=== PATIENT | female | born 1995 | race Caucasian/White ===

== ENCOUNTER 2016-11-16 16:15 | Emergency (ER) | payer BC ==
[2016-11-16] MEDS ORDERED: Sodium Chloride 0.9% 1,000 ML IV ONE (16:49)
[2016-11-16 17:33] LABS: CHLORIDE,CL 108 mmol/L (98-110); SODIUM,NA 139 mmol/L (136-146)
--- NOTE | 2016-11-16 18:56 | EDM.PDOC ---
ED HPI GENERAL MEDICAL PROBLEM - General Chief Complaint: Abdominal Pain Stated Complaint: ABD PAIN Time Seen by Provider: 11/16/16 16:40 Source of Information: Reports: Patient History Limitations: Reports: No Limitations - History of Present Illness INITIAL COMMENTS - FREE TEXT/NARRATIVE: History of present illness: [21-year-old female presenting with complaints of abdominal pain. Patient indicates she has been seen in another facility and indicated that she has an ovarian cyst. Patient comes in desiring further workup indicating that she wouldn't be over have workup for upwards to 8 week at her external facility and she can't tolerate the pain anymore she is concerned that it is more than just as cyst.] Review of systems: As per history of present illness and below otherwise all systems reviewed and negative. Past medical history: As per history of present illness and as reviewed below otherwise noncontributory. Surgical history: As per history of present illness and as reviewed below otherwise noncontributory. Social history: No reported history of drug or alcohol abuse. Family history: As per history of present illness and as reviewed below otherwise noncontributory. Physical exam: HEENT: Atraumatic, normocephalic, pupils reactive, negative for conjunctival pallor or scleral icterus, mucous membranes moist, throat clear, neck supple, nontender, trachea midline. Lungs: Clear to auscultation, breath sounds equal bilaterally, chest nontender. Heart: S1S2, regular, negative for clicks, rubs, or JVD. Abdomen: Soft, nondistended, diffuse nonspecific lower abdominal tenderness. Negative for masses or hepatosplenomegaly. Negative for costovertebral tenderness. Pelvis: Stable nontender. Genitourinary: Deferred. Rectal: Deferred. Extremities: Atraumatic, negative for cords or calf pain. Neurovascular unremarkable. Neuro: Awake, alert, oriented. Cranial nerves II through XII unremarkable. Cerebellum unremarkable. Motor and sensory unremarkable throughout. Exam nonfocal. Diagnostics: [CBC, CMP, UA and, urine hCG, transvaginal ultrasound] Therapeutics: [] Impression: [ HEMORRHAGIC ovarian cyst] Plan: [Supportive care, pain management] Definitive disposition and diagnosis as appropriate pending reevaluation and review of above. Lower Abdominal Pain Score (Numeric/FACES): 6 - Related Data Allergies Allergy/AdvReac Type Severity Reaction Status Date / Time Penicillins Allergy Other Verified 11/16/16 16:25 Home Meds: Home Meds Desog-E.Estradiol/E.Estradiol [Kariva 28 Day] 1 each PO DAILY 11/16/16 [History] Past Medical History - Past Health History Medical/Surgical History: Denies Medical/Surgical History Social & Family History - Tobacco Use Smoking Status *Q: Never Smoker Second Hand Smoke Exposure: No - Caffeine Use Caffeine Use: Reports: Coffee, Soda, Tea - Recreational Drug Use Recreational Drug Use: No ED ROS GENERAL - Review of Systems Review Of Systems: See Below (History of present illness) ED EXAM, GENERAL - Physical Exam Exam: See Below (See history of present illness) Course - Vital Signs Last Recorded V/S: Last Vital Signs Temp 36.9 C 11/16/16 16:30 Pulse 66 11/16/16 16:30 Resp 18 11/16/16 16:30 BP 128/87 11/16/16 16:30 Pulse Ox 96 11/16/16 16:30 - Orders/Labs/Meds Orders: Active Orders 24 hr Category Date Time Status Transvaginal Non OB [US] Stat Exams 11/16/16 16:49 Taken Labs: Laboratory Tests 11/16/16 11/16/16 11/16/16 Range/Units 16:55 16:55 17:00 WBC 8.60 (4.0-11.0) K/uL RBC 4.73 (4.30-5.90) M/uL Hgb 14.0 (12.0-16.0) g/dL Hct 41.3 (36.0-46.0) % MCV 87.3 (80.0-98.0) fL MCH 29.6 (27.0-32.0) pg MCHC 33.9 (31.0-37.0) g/dL RDW Std Deviation 41.6 (28.0-62.0) fl RDW Coeff of Valarie 13 (11.0-15.0) % Plt Count 319 (150-400) K/uL MPV 9.80 (7.40-12.00) fL Neut % (Auto) 74.0 (48.0-80.0) % Lymph % (Auto) 17.1 (16.0-40.0) % Mccone % (Auto) 8.0 (0.0-15.0) % Eos % (Auto) 0.8 (0.0-7.0) % Baso % (Auto) 0.1 (0.0-1.5) % Neut # (Auto) 6.4 H (1.4-5.7) K/uL Lymph # (Auto) 1.5 (0.6-2.4) K/uL Mccone # (Auto) 0.7 (0.0-0.8) K/uL Eos # (Auto) 0.1 (0.0-0.7) K/uL Baso # (Auto) 0.0 (0.0-0.1) K/uL Nucleated RBC % 0.0 /100WBC Nucleated RBCs # 0 K/uL Sodium (136-146) mmol/L Potassium (3.5-5.1) mmol/L Chloride (98-110) mmol/L Carbon Dioxide (21-31) mmol/L BUN (6.0-23.0) mg/dL Creatinine (0.6-1.5) mg/dL Est Cr Clr Drug Dosing mL/min Estimated GFR (MDRD) ml/min Glucose (60-110) mg/dL Calcium (8.8-10.8) mg/dL Total Bilirubin (0.1-1.5) mg/dL AST (5-40) IU/L ALT (8-54) IU/L Alkaline Phosphatase (40-150) Total Protein (6.0-8.0) g/dL Albumin (3.5-5.0) g/dL Globulin (2.0-3.5) g/dL Albumin/Globulin Ratio (1.3-2.8) Urine Color YELLOW Urine Appearance CLEAR Urine pH 7.0 (5.0-8.0) Ur Specific Mcconnell <= 1.005 (1.001-1.035) Urine Protein NEGATIVE (NEGATIVE) mg/dL Urine Glucose (UA) NEGATIVE (NEGATIVE) mg/dL Urine Ketones NEGATIVE (NEGATIVE) mg/dL Urine Occult Blood NEGATIVE (NEGATIVE) Urine Nitrite NEGATIVE (NEGATIVE) Urine Bilirubin NEGATIVE (NEGATIVE) Urine Urobilinogen 0.2 (<2.0) EU/dL Ur Leukocyte Esterase NEGATIVE (NEGATIVE) Urine RBC 0-1 (0-2/HPF) Urine WBC 0-1 (0-5/HPF) Ur Epithelial Cells OCCASIONAL (NONE-FEW) Urine Bacteria FEW (NEGATIVE) Urine HCG, Qual NEGATIVE (NEGATIVE) 11/16/16 Range/Units 17:00 WBC (4.0-11.0) K/uL RBC (4.30-5.90) M/uL Hgb (12.0-16.0) g/dL Hct (36.0-46.0) % MCV (80.0-98.0) fL MCH (27.0-32.0) pg MCHC (31.0-37.0) g/dL RDW Std Deviation (28.0-62.0) fl RDW Coeff of Valarie (11.0-15.0) % Plt Count (150-400) K/uL MPV (7.40-12.00) fL Neut % (Auto) (48.0-80.0) % Lymph % (Auto) (16.0-40.0) % Mccone % (Auto) (0.0-15.0) % Eos % (Auto) (0.0-7.0) % Baso % (Auto) (0.0-1.5) % Neut # (Auto) (1.4-5.7) K/uL Lymph # (Auto) (0.6-2.4) K/uL Mccone # (Auto) (0.0-0.8) K/uL Eos # (Auto) (0.0-0.7) K/uL Baso # (Auto) (0.0-0.1) K/uL Nucleated RBC % /100WBC Nucleated RBCs # K/uL Sodium 139 (136-146) mmol/L Potassium 3.6 (3.5-5.1) mmol/L Chloride 108 (98-110) mmol/L Carbon Dioxide 22 (21-31) mmol/L BUN 6 (6.0-23.0) mg/dL Creatinine 0.8 (0.6-1.5) mg/dL Est Cr Clr Drug Dosing 106.36 mL/min Estimated GFR (MDRD) > 60.0 ml/min Glucose 105 (60-110) mg/dL Calcium 9.0 (8.8-10.8) mg/dL Total Bilirubin 0.5 (0.1-1.5) mg/dL AST 15 (5-40) IU/L ALT 13 (8-54) IU/L Alkaline Phosphatase 52 (40-150) Total Protein 7.4 (6.0-8.0) g/dL Albumin 4.4 (3.5-5.0) g/dL Globulin 3.0 (2.0-3.5) g/dL Albumin/Globulin Ratio 1.5 (1.3-2.8) Urine Color Urine Appearance Urine pH (5.0-8.0) Ur Specific Mcconnell (1.001-1.035) Urine Protein (NEGATIVE) mg/dL Urine Glucose (UA) (NEGATIVE) mg/dL Urine Ketones (NEGATIVE) mg/dL Urine Occult Blood (NEGATIVE) Urine Nitrite (NEGATIVE) Urine Bilirubin (NEGATIVE) Urine Urobilinogen (<2.0) EU/dL Ur Leukocyte Esterase (NEGATIVE) Urine RBC (0-2/HPF) Urine WBC (0-5/HPF) Ur Epithelial Cells (NONE-FEW) Urine Bacteria (NEGATIVE) Urine HCG, Qual (NEGATIVE) Meds: Medications Discontinued Medications Generic Name Dose Route Start Last Admin Trade Name Freq PRN Reason Stop Dose Admin Sodium Chloride 1,000 mls @ 999 mls/hr 11/16/16 16:49 11/16/16 17:05 Normal Saline IV 11/16/16 17:49 999 mls/hr STAT ONE Administration Departure - Departure Time of Disposition: 18:56 Disposition: Home, Self-Care 01 Condition: good Clinical Impression: Ovarian cyst - Discharge Information Forms: ED Department Discharge Additional Instructions: The following information is given to patients seen in the emergency department who are being discharged to home. This information is to outline your options for follow-up care. We provide all patients seen in our emergency department with a follow-up referral. The need for follow-up, as well as the timing and circumstances, are variable depending upon the specifics of your emergency department visit. If you don't have a primary care physician on staff, we will provide you with a referral. We always advise you to contact your personal physician following an emergency department visit to inform them of the circumstance of the visit and for follow-up with them and/or the need for any referrals to a consulting specialist. The emergency department will also refer you to a specialist when appropriate. This referral assures that you have the opportunity for follow-up care with a specialist. All of these measure are taken in an effort to provide you with optimal care, which includes your follow-up. Under all circumstances we always encourage you to contact your private physician who remains a resource for coordinating your care. When calling for follow-up care, please make the office aware that this follow-up is from your recent emergency room visit. If for any reason you are refused follow-up, please contact the [facility] Emergency Department at and asked to speak to the emergency department charge nurse. Take medication as directed Followup with primary care 1-2 day Return to ED as needed as discussed - My Orders Last 24 Hours: My Active Orders 11/16/16 16:49 Transvaginal Non OB [US] Stat - Assessment/Plan Last 24 Hours: My Active Orders 11/16/16 16:49 Transvaginal Non OB [US] Stat
[2016-11-16 19:31] VITALS: BP 129/85
--- NOTE | 2016-11-17 13:31 | US ---
EXAM DATE: 11/16/16 PATIENT'S AGE: 21 Patient: SOFIA VICENTE Facility: [place], [place] Site . Site : 1995 Study: US Pelvis transvaginal non OB [id number]/23/2017 6:07:00 PM Ordering Physician: Doctor Gallagher Final Report: INDICATION: Pelvic pain for 2 days. PELVIC ULTRASOUND Technique: Multiple transvaginal sonographic images of the pelvis were performed. Findings: The uterus is normal in size and contour, measuring 6.7 x 3.1 x 4.5 cm. No uterine masses are identified. The endometrium measures 3.5 mm in thickness and appears homogeneous. The left ovary contains a cyst measuring 2.0 x 1.8 x 1.9 centimeters, containing faint internal echoes and likely representing a hemorrhagic cyst. The right ovary is unremarkable. Color and spectral Doppler blood flow is noted in both ovaries. No adnexal masses are evident. No significant free pelvic fluid is identified. IMPRESSION: Small probable hemorrhagic cyst of the left ovary as noted. Otherwise unremarkable pelvic ultrasound. FERNY PÉREZ MD [employer] Dictated by Pancho Pérez MD @ 11/16/2016 6:34:01 PM Dictated by: Pancho Pérez MD @ 11/16/2016 18:35:33 (Electronic Signature) Report Signed by Proxy. SWETHA
== END 2016-11-16 19:15 | disposition home or self-care (01) ==
LOC: MW.ED 16:15
DX: N83.202 Unspecified ovarian cyst, left side (principal); Z88.0 Allergy status to penicillin
CPT/HCPCS: 36415; 76830; 80053; 81001; 81025; 85025; 96360; 99284; J7040; 99282

== ENCOUNTER 2018-11-14 17:12 | Day surgery (SDC) | payer BC ==
[2018-11-14] MEDS ORDERED: Lactated Ringers 1,000 ML IV SCH (17:30)
[2018-11-14] MEDS ORDERED: Doxycycline 100 MG Cap PO ONE (17:30)
[2018-11-14] MEDS ORDERED: Midazolam 1 MG/ML 2 ML SDV ONE (18:31)
[2018-11-14] MEDS ORDERED: fentaNYL 100 MCG/2 ML SDV ONE (18:31)
[2018-11-14] MEDS ORDERED: Dexamethasone 4 MG/ML 5 ML MDV ONE (18:32)
[2018-11-14] MEDS ORDERED: Ondansetron 4 MG/2 ML SDV ONE (18:32)
[2018-11-14] MEDS ORDERED: Propofol 200 MG/20 ML SDV ONE (18:33)
[2018-11-14] MEDS ORDERED: Misoprostol 200 MCG Tab ONE (19:48)
[2018-11-14] MEDS ORDERED: Ketorolac 30 MG/ML SDV ONE (19:51)
--- NOTE | 2018-11-14 20:05 | PCM.OPNOTE ---
- General Post-Op/Procedure Note Date of Surgery/Procedure: 11/14/18 Operative Procedure(s): Suction Dilatation and Curettage Findings: EUA showed 10 week sized anteverted uterus Moderate products of conception noted Pre Op Diagnosis: Missed at 12 weeks Post-Op Diagnosis: Missed at 12 weeks Anesthesia Technique: General ET Tube Primary Surgeon: Surinder Silva Pathology: Product of conception Fluid Replacement, Intraop: 1,000 Output, Urine Amount: 20 EBL in mLs: 800 Complications: None Condition: Good
--- NOTE | 2018-11-14 20:22 | PCM.POSTAN ---
POST ANESTHESIA ASSESSMENT - MENTAL STATUS Mental Status: Alert, Oriented - VITAL SIGNS Pulse Rate: 62 SaO2: 100 Resp Rate: 16 Blood Pressure: 111/66 - RESPIRATORY Respiratory Status: Respiratory Rate WNL, Airway Patent, O2 Saturation Stable - CARDIOVASCULAR CV Status: Pulse Rate WNL, Blood Pressure Stable - GASTROINTESTINAL GI Status: No Symptoms - POST OP HYDRATION Hydration Status: Adequate & Stable
--- NOTE | 2018-11-14 20:23 | PCM.PREANE ---
Preanesthetic Assessment - Procedure Proposed Procedure: suction D & C - Anesthesia/Transfusion/Family Hx Anesthesia History: Prior Anesthesia Without Reaction Family History of Anesthesia Reaction: No Transfusion History: No Prior Transfusion(s) - Review of Systems Pulmonary: No Symptoms Cardiovascular: No Symptoms Neurological: No Symptoms Other: Reports: None - Physical Assessment O2 Sat by Pulse Oximetry: 100 Respiratory Rate: 16 Vital Signs: Last Vital Signs Temp 98.2 F 11/14/18 19:55 Pulse 82 11/14/18 20:12 Resp 9 L 11/14/18 20:12 BP 117/72 11/14/18 20:12 Pulse Ox 100 11/14/18 20:12 Height: 5 ft 7 in Weight: 156 lb 1.396 oz ASA Class: 1E Mental Status: Alert & Oriented x3 Dentition: Reports: Normal Dentition ROM/Head Extension: Full Lungs: Clear to Auscultation, Normal Respiratory Effort Cardiovascular: Regular Rate, Regular Rhythm - Lab Values: Laboratory Last Values WBC 9.47 K/uL (4.0-11.0) 11/14/18 14:52 RBC 4.67 M/uL (4.30-5.90) 11/14/18 14:52 Hgb 13.8 g/dL (12.0-16.0) 11/14/18 14:52 Hct 41.0 % (36.0-46.0) 11/14/18 14:52 MCV 87.8 fL (80.0-98.0) 11/14/18 14:52 MCH 29.6 pg (27.0-32.0) 11/14/18 14:52 MCHC 33.7 g/dL (31.0-37.0) 11/14/18 14:52 RDW Std Deviation 44.3 fl (28.0-62.0) 11/14/18 14:52 RDW Coeff of Valarie 14 % (11.0-15.0) 11/14/18 14:52 Plt Count 334 K/uL (150-400) 11/14/18 14:52 MPV 9.80 fL (7.40-12.00) 11/14/18 14:52 Nucleated RBC % 0.0 /100WBC 11/14/18 14:52 Nucleated RBCs # 0 K/uL 11/14/18 14:52 Blood Type O POSITIVE 11/14/18 14:52 Antibody Screen NEGATIVE 11/14/18 14:52 - Allergies Allergies/Adverse Reactions: Allergies Allergy/AdvReac Type Severity Reaction Status Date / Time Penicillins Allergy Other Verified 11/16/16 16:25 - Acknowledgements Anesthesia Type Planned: General Anesthesia Pt an Appropriate Candidate for the Planned Anesthesia: Yes Alternatives and Risks of Anesthesia Discussed w Pt/Guardian: Yes Pt/Guardian Understands and Agrees with Anesthesia Plan: Yes PreAnesthesia Questionnaire - Past Health History Medical/Surgical History: Denies Medical/Surgical History - Infectious Disease History Infectious Disease History: Reports: None - SUBSTANCE USE Smoking Status *Q: Never Smoker Second Hand Smoke Exposure: No Recreational Drug Use History: No - HOME MEDS Home Medications: Home Meds Desog-E.Estradiol/E.Estradiol [Kariva 28 Day] 1 each PO DAILY 11/16/16 [History] - CURRENT (IN HOUSE) MEDS Current Meds: Current Medications Lactated Ringer's (Ringers, Lactated) 1,000 mls @ 125 mls/hr IV ASDIRECTED [facility] Last Admin: 11/14/18 18:02 Dose: 125 mls/hr Discontinued Medications Dexamethasone (Dexamethasone) Confirm Administered Dose 20 mg .ROUTE .STK-MED ONE Stop: 11/14/18 18:33 Doxycycline Hyclate (Vibramycin) 200 mg PO ONETIME ONE Stop: 11/14/18 17:31 Last Admin: 11/14/18 18:01 Dose: 200 mg Fentanyl (Sublimaze) Confirm Administered Dose 100 mcg .ROUTE .STK-MED ONE Stop: 11/14/18 18:32 Lidocaine HCl (Xylocaine-Mpf 1%) Confirm Administered Dose 5 mls @ as directed .ROUTE .STK-MED ONE Stop: 11/14/18 18:33 Ketorolac Tromethamine (Toradol) Confirm Administered Dose 30 mg .ROUTE .STK- MED ONE Stop: 11/14/18 19:52 Midazolam HCl (Versed 1 Mg/Ml) Confirm Administered Dose 2 mg .ROUTE .STK-MED ONE Stop: 11/14/18 18:32 Misoprostol (Cytotec) Confirm Administered Dose 200 mcg .ROUTE .STK-MED ONE Stop: 11/14/18 19:49 Ondansetron HCl (Zofran) Confirm Administered Dose 4 mg .ROUTE .STK-MED ONE Stop: 11/14/18 18:33 Propofol (Diprivan 20 Ml) Confirm Administered Dose 400 mg .ROUTE .STK-MED ONE Stop: 11/14/18 18:34
--- NOTE | 2018-11-14 20:53 | PCM48HPAN ---
Post Anesthesia Note - EVALUATION WITHIN 48HRS OF ANESTHETIC Vital Signs in Normal Range: Yes Patient Participated in Evaluation: Yes Respiratory Function Stable: Yes Airway Patent: Yes Cardiovascular Function Stable: Yes Hydration Status Stable: Yes Pain Control Satisfactory: Yes Nausea and Vomiting Control Satisfactory: Yes Mental Status Recovered: Yes Pulse Rate: 62 SaO2: 99 Resp Rate: 16 Blood Pressure: 111/66
[2018-11-14 22:42] VITALS: BP 111/61
--- NOTE | 2018-11-15 01:28 | OR ---
SURGEON: ROBINSON SILVA DATE OF PROCEDURE:11/15/2018 PREOPERATIVE DIAGNOSES: Missed . POSTOPERATIVE DIAGNOSIS: Missed . PROCEDURE: Suction, dilatation, and curettage. PRIMARY SURGEON: Robinson Silva ANESTHESIA: General. ESTIMATED BLOOD LOSS: 800 mL. IV FLUIDS: 1000. COMPLICATIONS: None. FINDINGS: EUA Showed about an 8-week size anteverted uterus. Moderate amount of products of conception retrieved INDICATION: The patient is a 23-year-old, G2, P1-0-0-1 at 12 weeks, who came in for routine checkup. She was found to have no heartbeat on the hand-held ultrasound, so she was sent for a transvaginal ultrasound, which confirmed a missed at about 8 weeks 4 days. The patient was given option for medical versus conservative versus surgical management. She opted for surgical management. She was explained the risks, benefits, and alternatives, and she wanted to proceed. DESCRIPTION OF PROCEDURE: The patient was taken to the operating room where general anesthesia was performed without difficulty. She was prepared and draped in the usual sterile fashion in the lithotomy position with the Allan stirrups. A bivalve speculum was placed into the cervix to expose the cervix. The anterior lip of the cervix was grasped with the Allis forceps. At that time, 8 mm suction curette was advanced into the uterine cavity without difficulty and was used to suction the contents of the uterus. Following removal of the products of conception, a sharp curette was advanced to the uterine cavity and used to scrape all quadrants of the uterus until a gritty texture was noted. At this time, the suction curette was advanced an additional time to suction any remaining products. All instrument was removed. Hemostasis was noted. The patient was sent to the recovery room in stable condition. However, after the procedure, 200 mcg of Cytotec was placed in the rectum. All instrument and pad counts were correct x2. KRISTEN / LEIGHTON /[id number] SWETHA
== END 2018-11-14 22:02 | disposition home or self-care (01) ==
LOC: MW.SDS 17:12 → MW.MS 17:25 → MW.SDS 22:02
PROVIDERS: ATTEND Obstetrics & Gynecology
DX: O02.1 Missed abortion (principal); N85.4 Malposition of uterus; Z88.0 Allergy status to penicillin; Z79.899 Other long term (current) drug therapy
CPT/HCPCS: 36415; 59820; 85027; 86850; 86900; 86901; A9270; J1100; J1885; J2001; J2250; J2405; J2704; J3010; J7120

== ENCOUNTER 2018-11-29 16:30 | Day surgery (SDC) | payer BC ==
[2018-11-29] MEDS ORDERED: Azithromycin 1,000 MG in Sodium Chloride 0.9% 500 ML IV ONE (16:50)
[2018-11-29] MEDS ORDERED: Lactated Ringers 1,000 ML IV ONE (17:00)
[2018-11-29] MEDS ORDERED: Sodium Chloride 0.9% 10 ML Syringe FLUSH PRN (20:40)
[2018-11-29] MEDS ORDERED: Sodium Chloride 0.9% 10 ML SDV IV PRN (20:40)
[2018-11-29] MEDS ORDERED: Sodium Chloride 0.9% 2.5 ML Syringe FLUSH PRN (20:40)
--- NOTE | 2018-11-29 20:59 | PCM.PREANE ---
Preanesthetic Assessment - Anesthesia/Transfusion/Family Hx Anesthesia History: Prior Anesthesia Without Reaction Family History of Anesthesia Reaction: No Transfusion History: No Prior Transfusion(s) Intubation History: Intubation other than for Surgery in past - Review of Systems General: No Symptoms Pulmonary: No Symptoms Cardiovascular: No Symptoms Gastrointestinal: No Symptoms Neurological: No Symptoms Other: Reports: None - Physical Assessment NPO Status Date: 11/29/18 NPO Status Time: 14:00 O2 Sat by Pulse Oximetry: 99 Respiratory Rate: 16 Vital Signs: Last Vital Signs Temp 36.6 C 11/29/18 19:50 Pulse 68 11/29/18 19:50 Resp 16 11/29/18 19:50 BP 100/63 11/29/18 19:50 Pulse Ox 99 11/29/18 19:50 Height: 1.7 m Weight: 68.039 kg ASA Class: 1E Mental Status: Alert & Oriented x3 Airway Class: Mallampati = 1 Dentition: Reports: Normal Dentition Thyro-Mental Finger Breadths: 3 Mouth Opening Finger Breadths: 3 ROM/Head Extension: Full Lungs: Clear to Auscultation Cardiovascular: Regular Rate - Lab Values: Laboratory Last Values WBC 6.61 K/uL (4.0-11.0) 11/29/18 15:15 RBC 4.33 M/uL (4.30-5.90) 11/29/18 15:15 Hgb 12.4 g/dL (12.0-16.0) 11/29/18 17:19 Hct 37.3 % (36.0-46.0) 11/29/18 17:19 MCV 88.0 fL (80.0-98.0) 11/29/18 15:15 MCH 29.1 pg (27.0-32.0) 11/29/18 15:15 MCHC 33.1 g/dL (31.0-37.0) 11/29/18 15:15 RDW Std Deviation 42.4 fl (28.0-62.0) 11/29/18 15:15 RDW Coeff of Valarie 13 % (11.0-15.0) 11/29/18 15:15 Plt Count 381 K/uL (150-400) 11/29/18 15:15 MPV 9.40 fL (7.40-12.00) 11/29/18 15:15 Nucleated RBC % 0.0 /100WBC 11/29/18 15:15 Nucleated RBCs # 0 K/uL 11/29/18 15:15 HCG, Qual POSITIVE (NEG) H 11/29/18 17:19 Blood Type O POSITIVE 11/29/18 15:15 Antibody Screen NEGATIVE 11/29/18 15:15 - Allergies Allergies/Adverse Reactions: Allergies Allergy/AdvReac Type Severity Reaction Status Date / Time Penicillins Allergy Other Verified 11/16/16 16:25 - Blood Blood Available: No Product(s) Available: None - Anesthesia Plan Free Text/Narrative:: GA with LMA Pre-Op Medication Ordered: None (Discussed ? answered. No contraindications) PreAnesthesia Questionnaire - Past Health History Medical/Surgical History: Denies Medical/Surgical History PERINATAL DIRECTOR History: Reports: Spontaneous - Infectious Disease History Infectious Disease History: Reports: None - Past Surgical History Female Surgical History: Reports: D&C - SUBSTANCE USE Smoking Status *Q: Never Smoker Second Hand Smoke Exposure: No Recreational Drug Use History: No - HOME MEDS Home Medications: Home Meds Desog-E.Estradiol/E.Estradiol [Kariva 28 Day] 1 each PO DAILY 11/16/16 [History] - CURRENT (IN HOUSE) MEDS Current Meds: Current Medications Lactated Ringer's (Ringers, Lactated) 1,000 mls @ 125 mls/hr IV ONETIME ONE Stop: 11/30/18 00:59 Last Admin: 11/29/18 17:22 Dose: 125 mls/hr Sodium Chloride (Saline Flush) 10 ml FLUSH ASDIRECTED PRN PRN Reason: Keep Vein Open Sodium Chloride (Saline Flush) 2.5 ml FLUSH ASDIRECTED PRN PRN Reason: Keep Vein Open Sodium Chloride (Normal Saline) 10 ml IV ASDIRECTED PRN PRN Reason: IV Use Discontinued Medications Azithromycin 1,000 mg/ Sodium (Chloride) 500 mls @ 250 mls/hr IV ONETIME ONE Stop: 11/29/18 18:49 Last Admin: 11/29/18 17:23 Dose: 250 mls/hr
[2018-11-29] MEDS ORDERED: Ondansetron 4 MG/2 ML SDV ONE (21:13)
[2018-11-29] MEDS ORDERED: Midazolam 1 MG/ML 2 ML SDV ONE (21:14)
[2018-11-29] MEDS ORDERED: fentaNYL 100 MCG/2 ML SDV ONE (21:14)
[2018-11-29] MEDS ORDERED: Propofol 200 MG/20 ML SDV ONE ×2 (21:14→21:44)
[2018-11-29] MEDS ORDERED: Misoprostol 200 MCG Tab ONE (21:32)
[2018-11-29] MEDS ORDERED: Methylergonovine 0.2 MG/1 ML Amp ONE (21:41)
[2018-11-29] MEDS ORDERED: Oxytocin 10 Units/1 ML SDV ONE ×2 (21:58→22:18)
[2018-11-29] MEDS ORDERED: Oxytocin/0.9 % Sodium Chloride 30 UNIT/500 ML BAG ONE (22:22)
[2018-11-29] MEDS ORDERED: Meperidine PF 25 MG/ML Syringe IVPUSH ONE (22:48)
--- NOTE | 2018-11-29 23:16 | PCM.POSTAN ---
POST ANESTHESIA ASSESSMENT - MENTAL STATUS Mental Status: Alert Free Text/Narrative:: Doing well. Awake. Demerol 25mg given from shivering. - VITAL SIGNS Pulse Rate: 71 SaO2: 98 Resp Rate: 16 Blood Pressure: 105/59 Temperature: 36.8 C - RESPIRATORY Respiratory Status: Respiratory Rate WNL - CARDIOVASCULAR CV Status: Pulse Rate WNL - GASTROINTESTINAL GI Status: No Symptoms - PAIN Pain Score: 2 Free Text/Narrative:: Soreness and some cramping. - POST OP HYDRATION Hydration Status: Adequate & Stable (Doing well. Will transfer to floor. Pitocin running.)
--- NOTE | 2018-11-30 00:10 | PCM.OPNOTE ---
- General Post-Op/Procedure Note Date of Surgery/Procedure: 11/30/18 Operative Procedure(s): Suction D & C Findings: Cervical os opened USS showed heterogenous endometrium prior to procedure ,after procedure endometrium was noted to be thin however there was pooling of blood in the canal and moderate amount of bleeding . hence Methergine 0.2 mg IM given , Cytotec 800mg placed via vagina and Iv pitocin 30unit given in LR X 2 and Transexamic acid also given. Pre Op Diagnosis: Retained products of conception Post-Op Diagnosis: Retained products of conception Anesthesia Technique: General ET Tube Primary Surgeon: Surinder Silva Pathology: Product of conception Fluid Replacement, Intraop: 800 EBL in mLs: 400 Complications: None Condition: Good Free Text/Narrative:: Intake & Output 11/29/18 11/29/18 11/30/18 14:59 22:59 06:59 Intake Total 800 Balance 800
[2018-11-30 04:52] VITALS: BP 91/50
--- NOTE | 2018-11-30 12:09 | OR ---
SURGEON: ROBINSON SILVA DATE OF PROCEDURE: PREOPERATIVE DIAGNOSIS: Retained products of conception. POSTOPERATIVE DIAGNOSIS: Retained products of conception. PROCEDURE: Suction, dilatation and curettage. ANESTHESIA: General. PRIMARY SURGEON: Robinson Silva MD. PATHOLOGY: Products of conception. IV FLUID: 800. ESTIMATED BLOOD LOSS: 400. BRIEF HISTORY: She is a patient who is 23-year-old, had recent suction curettage in the past 2 weeks for missed . The patient was seen postop and she says she has been having some bleeding since after the procedure. An ultrasound was done, which showed some heterogeneous structure in the endometrium. As a result of this, the diagnosis of retained products was made. The patient was given the option of repeat suction curettage under ultrasound guidance. The patient accepted the procedure and agreed to proceed. DESCRIPTION OF PROCEDURE: The patient was taken to the operating room where general anesthesia was performed without difficulty. She was prepared and draped in the dorsal lithotomy position with Allan stirrups. The cervix was exposed and the Allis clamp was used to grasp the anterior cervix. The cervical os could accommodate the 8 mm curved curette. With ultrasound guidance, suction was done and the endometrium was noted to be empty after the suction was done. Moderate amount of tissue was obtained. As a result of this, after that, there was noted to be more bleeding, so the patient had to receive Pitocin 30 units and another bag was sent to path. She also received 1 g of tranexamic acid and 0.2 mg of Methergine and 800 mcg of Cytotec. Prior to the procedure, the patient received 1 g of azithromycin IV. When bleeding was controlled, the patient was left in observation for about 4 hours. She was supposed to receive a CBC before being discharged and she was discharged home with doxycycline for 7 days and Methergine 0.2 mg q.8 hourly . All instrument and pad counts were correct x2 after the procedure. The patient tolerated the procedure well. KRISTEN MANZANARES /[id number]
== END 2018-11-30 05:40 | disposition home or self-care (01) ==
LOC: MW.SDS 16:30 → MW.MS 16:36 → MW.SDS 11-30 05:40
PROVIDERS: ATTEND Obstetrics & Gynecology
DX: O03.4 Incomplete spontaneous abortion without complication (principal); F32.9 Major depressive disorder, single episode, unspecified; Z79.899 Other long term (current) drug therapy; Z88.0 Allergy status to penicillin
CPT/HCPCS: 36415; 59812; 76998; 84703; 85014; 85018; 85025; 85027; 85384; 85610; 85730; 86850; 86900; 86901; A9270; J0131; J0456; J2175; J2210; J2250; J2405; J2590; J2704; J3010; J7040; J7120

== ENCOUNTER 2019-11-23 16:15 | Inpatient (IN) | payer BC ==
[2019-11-23] MEDS ORDERED: Sodium Chloride 0.9% 2.5 ML Syringe FLUSH PRN (20:27)
[2019-11-23] MEDS ORDERED: Sodium Chloride 0.9% 10 ML SDV IV PRN (20:27)
[2019-11-23] MEDS ORDERED: Lidocaine 1% 50 ML MDV INJECT PRN (20:27)
[2019-11-23] MEDS ORDERED: Carboprost Tromethamine 250 MCG/1 ML Amp IM PRN (20:27)
[2019-11-23] MEDS ORDERED: Ondansetron 4 MG/2 ML SDV IVPUSH PRN (20:27)
[2019-11-23] MEDS ORDERED: Methylergonovine 0.2 MG/1 ML Amp IM PRN (20:27)
[2019-11-23] MEDS ORDERED: Misoprostol 25 MCG (1/4 of 100 MCG) Tab VAG PRN (20:27)
[2019-11-23] MEDS ORDERED: Sodium Chloride 0.9% 10 ML Syringe FLUSH PRN (20:27)
[2019-11-23] MEDS ORDERED: Butorphanol 1 MG/ML SDV IVPUSH PRN (20:27)
[2019-11-23] MEDS ORDERED: Terbutaline 1 MG/ML SDV SUBCUT PRN (20:27)
[2019-11-23] MEDS ORDERED: Nalbuphine 10 MG/1 ML Vial IVPUSH PRN (20:27)
[2019-11-23] MEDS ORDERED: Misoprostol 200 MCG Tab PO PRN (20:27)
[2019-11-23] MEDS ORDERED: Tranexamic Acid 1,000 MG in Sodium Chloride 0.9% 100 ML IV PRN (20:27)
[2019-11-23] MEDS ORDERED: Water For Irrigation,Sterile 1,000 ML Container IRR PRN (20:27)
[2019-11-23] MEDS ORDERED: Oxytocin/0.9 % Sodium Chloride 30 UNIT/500 ML BAG IV SCH ×2 (20:30)
[2019-11-24] MEDS: Misoprostol 25 MCG (1/4 of 100 MCG) Tab VAG PRN ×2 (03:30→07:31)
[2019-11-24] MEDS: Lactated Ringers 1,000 ML IV SCH ×3 (07:55→12:29)
[2019-11-24] MEDS ORDERED: fentaNYL 100 MCG/2 ML SDV ONE (08:22)
[2019-11-24] MEDS ORDERED: Ropivacaine HCl/PF 100 ML ONE (08:22)
--- NOTE | 2019-11-24 08:48 | PCM.PREANE ---
Preanesthetic Assessment - Anesthesia/Transfusion/Family Hx Anesthesia History: Prior Anesthesia Without Reaction Family History of Anesthesia Reaction: No Transfusion History: No Prior Transfusion(s) Intubation History: Intubation other than for Surgery in past - Physical Assessment NPO Status Date: 11/24/19 NPO Status Time: 00:05 Height: 1.7 m Weight: 91.172 kg ASA Class: 1 - Lab Values: Laboratory Last Values WBC 8.99 K/uL (4.0-11.0) 11/23/19 22:17 RBC 4.07 M/uL (4.30-5.90) L 11/23/19 22:17 Hgb 11.3 g/dL (12.0-16.0) L 11/23/19 22:17 Hct 34.7 % (36.0-46.0) L 11/23/19 22:17 MCV 85.3 fL (80.0-98.0) 11/23/19 22:17 MCH 27.8 pg (27.0-32.0) 11/23/19 22:17 MCHC 32.6 g/dL (31.0-37.0) 11/23/19 22:17 RDW Std Deviation 51.5 fl (28.0-62.0) 11/23/19 22:17 RDW Coeff of Valarie 16 % (11.0-15.0) H 11/23/19 22:17 Plt Count 267 K/uL (150-400) 11/23/19 22:17 MPV 10.20 fL (7.40-12.00) 11/23/19 22:17 Nucleated RBC % 0.0 /100WBC 11/23/19 22:17 Nucleated RBCs # 0 K/uL 11/23/19 22:17 Blood Type O POSITIVE 11/23/19 22:17 Antibody Screen NEGATIVE 11/23/19 22:17 - Allergies Allergies/Adverse Reactions: Allergies Allergy/AdvReac Type Severity Reaction Status Date / Time Penicillins Allergy Other Verified 11/23/19 20:26 - Acknowledgements Anesthesia Type Planned: Epidural Pt an Appropriate Candidate for the Planned Anesthesia: Yes Alternatives and Risks of Anesthesia Discussed w Pt/Guardian: Yes Pt/Guardian Understands and Agrees with Anesthesia Plan: Yes PreAnesthesia Questionnaire - Past Health History Medical/Surgical History: Denies Medical/Surgical History PANTS CUTTER History: Reports: , Spontaneous - Infectious Disease History Infectious Disease History: Reports: None - Past Surgical History Female Surgical History: Reports: D&C - SUBSTANCE USE Smoking Status *Q: Never Smoker Second Hand Smoke Exposure: No Recreational Drug Use History: No - HOME MEDS Home Medications: Home Meds desog-e.estradioL/e.estradioL [Kariva 28 Day] 1 each PO DAILY 11/16/16 [History] Doxycycline [Vibramycin] 100 mg PO DAILY 7 Days #14 tab 11/30/18 [Rx] Methylergonovine [Methergine] 0.2 mg PO Q8HR 1 Days #3 tablet 11/30/18 [Rx] - CURRENT (IN HOUSE) MEDS Current Meds: Current Medications Butorphanol Tartrate (Stadol) 1 mg IVPUSH Q1H PRN PRN Reason: Pain Carboprost Tromethamine (Hemabate Ds) 250 mcg IM ASDIRECTED PRN PRN Reason: Post Hemorrhage Lactated Ringer's (Ringers, Lactated) 1,000 mls @ 150 mls/hr IV ASDIRECTED SHORTY Last Admin: 11/24/19 07:55 Dose: 999 mls/hr Oxytocin/Sodium Chloride (Oxytocin 30 Unit/500 Ml-Ns) 30 unit in 500 mls @ 555 mls/hr IV TITRATE SHORTY Oxytocin/Sodium Chloride (Oxytocin 30 Unit/500 Ml-Ns) 30 unit in 500 mls @ 2 mls/hr IV TITRATE SHORTY; Protocol Tranexamic Acid 1,000 mg/ (Sodium Chloride) 110 mls @ 660 mls/hr IV ONETIME PRN PRN Reason: Bleeding Lidocaine HCl (Xylocaine 1%) 50 ml INJECT ONETIME PRN PRN Reason: Laceration repair Methylergonovine Maleate (Methergine) 0.2 mg IM ASDIRECTED PRN PRN Reason: Post Hemorrhage Misoprostol (Cytotec) 200 mcg PO ONETIME PRN PRN Reason: Post Hemorrhage Misoprostol (Cytotec) 25 mcg VAG ONETIME PRN PRN Reason: Cervical Ripening Last Admin: 11/23/19 23:09 Dose: 25 mcg Misoprostol (Cytotec) 25 mcg VAG Q4H PRN PRN Reason: Cervical Ripening Last Admin: 11/24/19 07:31 Dose: 25 mcg Nalbuphine HCl (Nubain) 10 mg IVPUSH Q1H PRN PRN Reason: Pain (severe 7-10) Ondansetron HCl (Zofran) 4 mg IVPUSH Q4H PRN PRN Reason: Nausea/Vomiting Sodium Chloride (Saline Flush) 10 ml FLUSH ASDIRECTED PRN PRN Reason: Keep Vein Open Sodium Chloride (Saline Flush) 2.5 ml FLUSH ASDIRECTED PRN PRN Reason: Keep Vein Open Sodium Chloride (Normal Saline) 10 ml IV ASDIRECTED PRN PRN Reason: IV Use Sterile Water (Sterile Water For Irrigation) 1,000 ml IRR ASDIRECTED PRN PRN Reason: delivery Terbutaline Sulfate (Brethine) 0.25 mg SUBCUT ASDIRECTED PRN PRN Reason: Tacysystole Discontinued Medications Fentanyl (Sublimaze) Confirm Administered Dose 100 mcg .ROUTE .STK-MED ONE Stop: 11/24/19 08:23 Ropivacaine (Naropin 0.2%) Confirm Administered Dose 100 mls @ as directed .ROUTE .STK-MED ONE Stop: 11/24/19 08:23
--- NOTE | 2019-11-24 08:51 | PCM.PRNOTE ---
- Free Text/Narrative Note: Anes Note Patient requests epidural for L&D. Sitting position, level L3-L4 midline approach. Sterle technique. Chloraprep scrub to lumbar area. Sterile fenestrated drape applied. Epidural space easily achieved using GREGG technique. GREGG at 3 cm. Cath threaded 5 cm with ease. Cath secured at skin at 9 cm using sterile clear adhesive dressing. 0838 test 3 cc 1.5% lido with epi negative. 0841 Load 10 cc 0.2% ropivicaine with 1 mcg cc fentanyl in slow divided doses. 0846 Pump started with 90 cc same solution. Rate is 8 cc hr with 6 cc q 20 min prn bolus. Andrés well. Time with patient [id number] Rashel Toney [employer] OPERATOR
[2019-11-24] MEDS ORDERED: Benzocaine/Menthol 20%-0.5% Spray 78 GM Cannister TOP PRN (16:50)
[2019-11-24] MEDS ORDERED: Acetaminophen 500 MG Tab PO PRN ×2 (16:50)
[2019-11-24] MEDS ORDERED: Witch Hazel Medicated Pads 40/Jar TOP PRN (16:50)
[2019-11-24] MEDS ORDERED: Ibuprofen 400 MG Tab PO PRN (16:50)
[2019-11-24] MEDS ORDERED: Docusate Sodium 100 MG Cap PO PRN (16:50)
[2019-11-24] MEDS ORDERED: Bisacodyl 10 MG Supp RECTAL PRN (16:50)
[2019-11-24] MEDS ORDERED: Lanolin 100% Cream 7 GM Tube TOP PRN (16:50)
--- NOTE | 2019-11-24 18:51 | OR ---
SURGEON: Jay Jay Solares MD DATE OF PROCEDURE: 11/24/2019 INDICATION FOR PROCEDURE: A 24-year-old G3, P1-0-1-1 at 39 weeks and 5 days, admitted for elective induction of labor. The patient had uncomplicated , is GBS negative. She received Cytotec and Pitocin for induction of labor. She received an epidural with good pain control. She had developed recurrent variable decelerations, patient repositioned and the Pitocin was eventually turned off. heart rate had good recovery and she continued to progress. She became fully dilated and +1 station and began pushing with contractions. PREOPERATIVE DIAGNOSIS: Jeong intrauterine at 39 weeks and 5 days. POSTOPERATIVE DIAGNOSIS: Jeong intrauterine at 39 weeks and 5 days. PROCEDURE PERFORMED: 1. Normal spontaneous vaginal delivery. 2. Repair of first-degree laceration. ANESTHESIA: Epidural. ESTIMATED BLOOD LOSS: 200 mL. FINDINGS: Viable female , scores of 8 and 8, weight of 3820 g. Nuchal cord x1. DESCRIPTION OF PROCEDURE: The patient pushed with contractions for approximately 30 minutes with good descent. head delivered occiput anterior position over an intact perineum, restituted ROT. Anterior shoulder delivered easily. There was a tight nuchal cord x1. The baby presented with compound presentation of the right arm. The posterior shoulder and remaining body delivered easily. The nuchal cord was reduced after delivery. The baby was placed on maternal chest and evaluated by awaiting nursery staff. The baby was pink, crying, and moving all extremities immediately after delivery. The umbilical cord was clamped and cut after 60 seconds and no longer pulsating. The cord gases were obtained. The placenta was removed with gentle traction on the umbilical cord. It was examined and found to be intact with 3-vessel cord. The uterus was firm with fundal massage and below the umbilicus. Bleeding was light. The perineum was examined, and she had a first-degree laceration, which was repaired with 3-0 Vicryl in usual fashion. Hemostasis was confirmed after the procedure. She tolerated the procedure well, was given care instructions. LILI MANZANARES /[id number] MTDGuillermo
[2019-11-24] MEDS: Ibuprofen 800 MG Tab PO PRN (20:04)
[2019-11-25] MEDS: Ibuprofen 800 MG Tab PO PRN (02:31)
--- NOTE | 2019-11-25 06:54 | PCM48HPAN ---
Post Anesthesia Note - EVALUATION WITHIN 48HRS OF ANESTHETIC Vital Signs in Normal Range: Yes Patient Participated in Evaluation: Yes Respiratory Function Stable: Yes Airway Patent: Yes Cardiovascular Function Stable: Yes Hydration Status Stable: Yes Pain Control Satisfactory: Yes Nausea and Vomiting Control Satisfactory: Yes Mental Status Recovered: Yes Vital Signs: Last Vital Signs Temp 36.2 C 11/25/19 04:00 Pulse 61 11/25/19 04:00 Resp 16 11/25/19 04:00 BP 105/61 11/25/19 04:00 Pulse Ox 95 11/25/19 04:00
[2019-11-25 09:34] VITALS: BP 113/66; PULSE 60
--- NOTE | 2019-11-25 12:05 | PCM.PNPP ---
- General Info Date of Service: 11/25/19 Functional Status: Reports: Pain Controlled, Tolerating Diet, Ambulating, Urinating - Review of Systems General: Reports: No Symptoms HEENT: Reports: No Symptoms Pulmonary: Reports: No Symptoms Cardiovascular: Reports: No Symptoms Gastrointestinal: Reports: No Symptoms Genitourinary: Reports: No Symptoms Musculoskeletal: Reports: No Symptoms Skin: Reports: No Symptoms Neurological: Reports: No Symptoms Psychiatric: Reports: No Symptoms - Patient Data Vital Signs - Most Recent: Last Vital Signs Temp 36.7 C 11/25/19 09:33 Pulse 60 11/25/19 09:33 Resp 16 11/25/19 09:33 BP 113/66 11/25/19 09:33 Pulse Ox 95 11/25/19 09:33 Weight - Most Recent: 201 lb Lab Results - Last 24 Hours: Laboratory Results - last 24 hr 11/25/19 Range/Units 05:50 Hgb 10.8 L (12.0-16.0) g/dL Hct 33.6 L (36.0-46.0) % Med Orders - Current: Current Medications Acetaminophen (Tylenol Extra Strength) 500 mg PO Q4H PRN PRN Reason: Pain Acetaminophen (Tylenol Extra Strength) 1,000 mg PO Q4H PRN PRN Reason: Pain Benzocaine/Menthol (Dermoplast Pain Relief 20%-0.5% Bern) 78 gm TOP ASDIRECTED PRN PRN Reason: Perineal Comfort Measure Last Admin: 11/24/19 19:59 Dose: 78 gm Bisacodyl (Dulcolax) 10 mg RECTAL ONETIME PRN PRN Reason: Constipation Butorphanol Tartrate (Stadol) 1 mg IVPUSH Q1H PRN PRN Reason: Pain Carboprost Tromethamine (Hemabate Ds) 250 mcg IM ASDIRECTED PRN PRN Reason: Post Hemorrhage Docusate Sodium (Colace) 100 mg PO BID PRN PRN Reason: Constipation Emollient Ointment (Lansinoh Hpa) 0 gm TOP ASDIRECTED PRN PRN Reason: Sore Nipples Last Admin: 11/24/19 20:00 Dose: 7 gm Lactated Ringer's (Ringers, Lactated) 1,000 mls @ 150 mls/hr IV ASDIRECTED SHORTY Last Infusion: 05/30/20 13:59 Dose: 125 mls/hr Oxytocin/Sodium Chloride (Oxytocin 30 Unit/500 Ml-Ns) 30 unit in 500 mls @ 555 mls/hr IV TITRATE SHORTY Oxytocin/Sodium Chloride (Oxytocin 30 Unit/500 Ml-Ns) 30 unit in 500 mls @ 2 mls/hr IV TITRATE SHORTY; Protocol Last Titration: 11/24/19 16:24 Dose: 999 munits/min, 999 mls/hr Tranexamic Acid 1,000 mg/ (Sodium Chloride) 110 mls @ 660 mls/hr IV ONETIME PRN PRN Reason: Bleeding Ibuprofen (Motrin) 400 mg PO Q4H PRN PRN Reason: Pain Ibuprofen (Motrin) 800 mg PO Q6H PRN PRN Reason: Pain Last Admin: 11/25/19 02:31 Dose: 800 mg Lidocaine HCl (Xylocaine 1%) 50 ml INJECT ONETIME PRN PRN Reason: Laceration repair Methylergonovine Maleate (Methergine) 0.2 mg IM ASDIRECTED PRN PRN Reason: Post Hemorrhage Misoprostol (Cytotec) 200 mcg PO ONETIME PRN PRN Reason: Post Hemorrhage Misoprostol (Cytotec) 25 mcg VAG ONETIME PRN PRN Reason: Cervical Ripening Last Admin: 11/23/19 23:09 Dose: 25 mcg Misoprostol (Cytotec) 25 mcg VAG Q4H PRN PRN Reason: Cervical Ripening Last Admin: 11/24/19 07:31 Dose: 25 mcg Nalbuphine HCl (Nubain) 10 mg IVPUSH Q1H PRN PRN Reason: Pain (severe 7-10) Ondansetron HCl (Zofran) 4 mg IVPUSH Q4H PRN PRN Reason: Nausea/Vomiting Sodium Chloride (Saline Flush) 10 ml FLUSH ASDIRECTED PRN PRN Reason: Keep Vein Open Sodium Chloride (Saline Flush) 2.5 ml FLUSH ASDIRECTED PRN PRN Reason: Keep Vein Open Sodium Chloride (Normal Saline) 10 ml IV ASDIRECTED PRN PRN Reason: IV Use Sterile Water (Sterile Water For Irrigation) 1,000 ml IRR ASDIRECTED PRN PRN Reason: delivery Last Admin: 11/24/19 16:25 Dose: 1,000 ml Terbutaline Sulfate (Brethine) 0.25 mg SUBCUT ASDIRECTED PRN PRN Reason: Tacysystole Win Gregoria (Tucks) 1 pad TOP ASDIRECTED PRN PRN Reason: comfort care Last Admin: 11/24/19 19:59 Dose: 1 pad Discontinued Medications Fentanyl (Sublimaze) Confirm Administered Dose 100 mcg .ROUTE .STK-MED ONE Stop: 11/24/19 08:23 Ropivacaine (Naropin 0.2%) Confirm Administered Dose 100 mls @ as directed .ROUTE .STK-MED ONE Stop: 11/24/19 08:23 - Infant Interaction Disposition, : at Bedside Interaction: Holding Support Person: - Recovery Exam Fundal Tone: Firm Fundal Level: At Umbilicus Fundal Placement: Midline Lochia Amount: Scant, Small Lochia Color: Rubra/Red Perineum Description: Intact, Minimal Bruising/Swelling Episiotomy/Laceration: Approximated Bladder Status: Palpable Urinary Elimination: Voided, Other (see below) Other Urinary Elimination, : recommended to void more frequently - Exam General: Alert, Oriented, Cooperative, No Acute Distress HEENT: Pupils Equal, Pupils Reactive, EOMI Neck: Supple, Trachea Midline Lungs: Normal Respiratory Effort GI/Abdominal Exam: Soft, Non-Tender, No Organomegaly, No Distention Extremities: Normal Inspection, Normal Range of Motion, Non-Tender, No Pedal Edema Skin: Warm, Dry, Intact Wound/Incisions: Healing Well Neurological: No New Focal Deficit Psy/Mental Status: Alert, Normal Affect, Normal Mood - Problem List Review Problem List Initiated/Reviewed/Updated: Yes - My Orders Last 24 Hours: My Active Orders 11/24/19 16:50 Patient Status [ADT] Routine May Shower [RC] ASDIRECTED Up ad Vonda [RC] ASDIRECTED Acetaminophen [Tylenol Extra Strength] 1,000 mg PO Q4H PRN Acetaminophen [Tylenol Extra Strength] 500 mg PO Q4H PRN Benzocaine/Menthol [Dermoplast Pain Relief 20%-0.5% Bern] 78 gm TOP ASDIRECTED PRN Docusate Sodium [Colace] 100 mg PO BID PRN Ibuprofen [Motrin] 400 mg PO Q4H PRN Ibuprofen [Motrin] 800 mg PO Q6H PRN Lanolin [Lansinoh HPA] See Dose Instructions TOP ASDIRECTED PRN bisacodyL [Dulcolax] 10 mg RECTAL ONETIME PRN witch Gregoria [Tucks] 1 pad TOP ASDIRECTED PRN Assess Lochia [WOMSER] Per Unit Routine Assess Uterine Involution [WOMSER] Per Unit Routine Breast Pump [WOMSER] Per Unit Routine Peripheral IV Discontinue [OM.PC] Routine 11/24/19 16:51 Ice Therapy [OM.PC] Per Unit Routine Perineal Care [OM.PC] Per Unit Routine Sitz Bath [OM.PC] Per Unit Routine 11/24/19 Dinner Regular Diet [DIET] 11/25/19 12:01 Ready for Discharge [RC] PER UNIT ROUTINE - Assessment Assessment:: 24yo PPD1 s/p . Stable and recovering well. - Plan Plan:: - vitals stable - ambulating, tolerating PO - bleeding light, Hgb 10.9, advised to continue iron daily Stable for discharge home. Reviewed care instructions
== END 2019-11-25 17:55 | disposition home or self-care (01) | DRG 560 ==
LOC: MW.OB 16:15 → OBSVTOIN 11-24 16:15 → MW.OB 11-24 20:35
PROVIDERS: ADMIT Obstetrics & Gynecology; ATTEND Obstetrics & Gynecology
PROC: 10E0XZZ Delivery of Products of Conception, External Approach (ICD-10-PCS; principal; 2019-11-24)
PROC: 3E033VJ Introduction of Other Hormone into Peripheral Vein, Percutaneous Approach (ICD-10-PCS; 2019-11-24)
PROC: 10907ZC Drainage of Amniotic Fluid, Therapeutic from Products of Conception, Via Natural or Artificial Opening (ICD-10-PCS; 2019-11-24)
PROC: 0HQ9XZZ Repair Perineum Skin, External Approach (ICD-10-PCS; 2019-11-24)
PROC: 3E0R3BZ Introduction of Anesthetic Agent into Spinal Canal, Percutaneous Approach (ICD-10-PCS; 2019-11-24)
PROC: 00HU33Z Insertion of Infusion Device into Spinal Canal, Percutaneous Approach (ICD-10-PCS; 2019-11-24)
DX: O70.0 First degree perineal laceration during delivery (principal); Z37.0 Single live birth; Z3A.39 39 weeks gestation of pregnancy
CPT/HCPCS: 01967; 36415; 51702; 59025; 59409; 85014; 85018; 85027; 86592; 86593; 86850; 86900; 86901; A9270-GY; J2590; J2795; J3010; J7120